=== PATIENT | male | born 2000 | race Hispanic/Latino ===

== ENCOUNTER 2021-03-03 03:12 | Emergency (ER) | payer OTHER, MEDICAID, SELFPAY ==
[2021-03-03 03:32] VITALS: BP 152/103; PULSE 104; RESP 16; TEMP 37.6; O2SAT 100
--- NOTE | 2021-03-03 03:35 | ECG_ITS ---
Measurements Intervals [place] Rate: 86 P: 29 TN: 163 QRS: 76 QRSD: 93 T: 0 QT: 327 QTc: 393 Interpretive Statements SINUS RHYTHM NONSPECIFIC T-WAVE ABNORMALITY- INFERIOR LEADS BORDERLINE ECG Electronically Signed On 03-03-2021 6:49:45 CDT by Gabriel Do D.O.
[2021-03-03 03:51] LABS: Basophils Percent Auto 0.4 % (0.2-1.2); Eosinophils Absolute Auto 0.1 K/mm3 (0-0.3); Eosinophils Percent Auto 1.3 % (0-4.4); Hematocrit 45.9 % (42.0-52.0); Hemoglobin 15.8 g/dL (14.0-18.0); Immature Granulocyte Absolute 0.03 K/mm3 (0.00-0.031); Immature Granulocyte Percent A 0.3 % (0-0.5); Lymphocytes Absolute Auto 3.67 K/mm3 (0.9-3.2); Lymphocytes Percent Auto 36.2 % (18.3-44.2); Mean Corpuscular HGB Conc 34.4 g/dl (32-36); Mean Corpuscular Hemoglobin 30.8 pg (26-34); Mean Corpuscular Volume 89.5 fl (80-100); Mean Platelet Volume 10.4 fl (7.4-10.4); Monocytes Absolute Auto 0.6 K/mm3 (0.1-0.6); Neutrophils Absolute Auto 5.7 K/mm3 (1.3-6.7); Neutrophils Percent Auto 55.8 % (45.5-73.1); Platelet Count Result 227 k/mm3 (150-375); Red Blood Count 5.13 M/mm3 (4.6-6.20); Red Cell Distribution Width 11.8 % (11.5-14.5); White Blood Count 10.2 K/mm3 (4.5-10.0)
[2021-03-03 03:53] LABS: Add Urine Microscopic? NO; Appearance Urine Clear (Clear); Bilirubin Urine Negative (Negative); Blood Urine Negative (Negative); Color Urine Yellow (Yellow); Glucose Urine UA Negative (Negative); Ketones Urine Negative (Negative); Leukocyte Esterase Ur Negative LEU/UL (Negative); Nitrate Urine Negative (Negative); Protein Urine Negative (Negative); Specific Grav Ur 1.017 (1.001-1.035); Urobilinogen Urine Negative mg/dL (<2.0)
--- NOTE | 2021-03-03 03:58 | ED.GENADULT ---
HPI - General Adult General Chief complaint: Psychiatric Symptoms Stated complaint: suicidal ideation Time Seen by Provider: 03/03/21 03:35 History of Present Illness HPI narrative: Patient 21-year-old gentleman who presents the emergency department with chief complaint of depression and suicidal ideation. Patient states that he has been depressed for some time has stopped taking his antidepressants and reports that currently he has been having thoughts intermittently of wanting to hurt himself patient describes it as a recurring dream of which he wakes up and he is decided to cut off his single solitary testicle after he has history of a undescended testis. Patient reports that he has no other plan to harm himself and has not acted on this before in the past. Patient reports no prior hospitalizations reports he has seen a therapist before when he was at school in [place]. Related Data Home Medications Medication Instructions Recorded Confirmed No Home Medications 03/03/21 03/03/21 Allergies Allergy/AdvReac Type Severity Reaction Status Date / Time No Known Allergies Allergy Verified 03/03/21 04:21 Review of Systems Review of Systems: Narrative: A 10 system review of systems was completed on the patient and is negative except for what is stated in the HPI. Nursing and ancillary documentation was reviewed. [facility] Social History Social History Substance use type: does not use Gender identity (if verbalized by the patient): Male Comments Patient has past medical history significant for depression Social history the patient denies illicit drug use Exam Narrative: Exam Narrative: GENERAL: Well-appearing, well-nourished, and in no acute distress. HEAD: Normocephalic, atraumatic. EYES: PERRLA and EOMI. ENT: Nares clear, no rhinorrhea or epistaxis. Mucous membranes moist. NECK: Supple. CHEST: Clear to auscultation. No respiratory distress. HEART: Regular rate and rhythm. No murmur heard. Normal peripheral pulses. ABDOMEN: Soft, nontender, nondistended, normal active bowel sounds. EXTREMITIES: Normal range of motion. No edema. SKIN: Warm, dry, no rash. NEURO: No focal deficits. Alert and oriented x3. PSYCH: Normal mood and affect. Course Course Emergency Course: Patient is medically cleared for psychiatric evaluation Patient was seen by the painting trades worker initially the plan was to admit the patient in further discussion the patient was able to contract for safety the plan will be to discharge the patient with a safety contract follow-up as an outpatient. Vital Signs Vital signs: Vital Signs Temperature 37.6 C H 03/03/21 03:32 Pulse Rate 104 H 03/03/21 03:32 Respiratory Rate 16 03/03/21 03:32 Blood Pressure 152/103 H 03/03/21 03:32 Pulse Oximetry 100 03/03/21 03:32 Temperature 37.6 C H 03/03/21 03:32 Pulse Rate 104 H 03/03/21 03:32 Respiratory Rate 16 03/03/21 03:32 Blood Pressure 152/103 H 03/03/21 03:32 Pulse Oximetry 100 03/03/21 03:32 Medical Decision Making Vital Signs Vital Signs: Vital Signs Temperature 37.6 C H 03/03/21 03:32 Pulse Rate 104 H 03/03/21 03:32 Respiratory Rate 16 03/03/21 03:32 Blood Pressure 152/103 H 03/03/21 03:32 Pulse Oximetry 100 03/03/21 03:32 Temperature 37.6 C H 03/03/21 03:32 Pulse Rate 104 H 03/03/21 03:32 Respiratory Rate 16 03/03/21 03:32 Blood Pressure 152/103 H 03/03/21 03:32 Pulse Oximetry 100 03/03/21 03:32 Lab Data Result diagrams: 03/03/21 03:45 03/03/21 03:44 Labs: Lab Results 03/03/21 03/03/21 03/03/21 Range/Units 03:44 03:44 03:45 WBC (4.5-10.0) K/mm3 RBC (4.6-6.20) M/mm3 Hgb (14.0-18.0) g/dL Hct (42.0-52.0) % MCV (80-100) fl MCH (26-34) pg MCHC (32-36) g/dl RDW (11.5-14.5) % Plt Count (150-375) k/mm3 MPV (7.4-10.4) fl Immature Gran %
[2021-03-03 04:04] LABS: Alanine Aminotransferase 93 U/L (4-50); Albumin Level 4.5 g/dL (3.5-5.1); Alkaline Phosphatase 110 U/L (38-126); Anion Gap 7 mmol/L (8-16); Aspartate Amino Transferase 55 U/L (17-59); Bilirubin,Total 0.4 mg/dL (0.2-1.3); Blood Urea Nitrogen 10 mg/dL (9-20); Calcium 9.7 mg/dL (8.4-10.2); Carbon Dioxide 26 mmol/L (22-30); Chloride 104 mmol/L (98-107); Estimated CRCL calculation 195 ml/min; Estimated Glomerular Filt Rate > 60; Glucose 117 mg/dL (75-110); Potassium 3.9 mmol/L (3.4-5.0); Sodium 137 mmol/L (137-145)
[2021-03-03 04:05] LABS: Acetaminophen < 10 ug/mL (10-30); Ethanol < 10 mg/dL (<10); Salicylate < 1.0 mg/dL (2-20)
[2021-03-03 04:16] LABS: Amphetamine Screen Urine Negative (Negative); Barbiturate Screen Urine Negative (Negative); Benzodiazepines Screen Urine Negative (Negative); Cannabinoid Screen Urine Negative (Negative); Cocaine Screen Urine Negative (Negative); Methadone Screen Urine Negative (Negative); Opiate Screen Urine Negative (Negative); Phencyclidine Screen Urine Negative (Negative)
--- NOTE | 2021-03-03 04:53 | PC.NURSE ---
Per EDP, pt is medically cleared at this time.
[2021-03-03 07:15] VITALS: BP 122/81; PULSE 85; RESP 16; O2SAT 98
== END 2021-03-03 07:15 | disposition home or self-care (01) ==
PROVIDERS: Emergency Provider Emergency Medicine
DX: F32.9 Major depressive disorder, single episode, unspecified (principal); F41.9 Anxiety disorder, unspecified; R94.31 Abnormal electrocardiogram [ECG] [EKG]
CPT/HCPCS: 36415; 80053; 80307; 81003; 84443; 85025; 93005; 99284

== ENCOUNTER 2021-11-08 10:28 | Outpatient (CLI) | payer OTHER, MEDICAID, SELFPAY ==
--- NOTE | ~2021-11-08 | US_ITS ---
EXAMINATION: US scrotum doppler DATE: 11/08/2021 11:16 INDICATION: History of undescended right testicle status post right orchiectomy TECHNIQUE: Testicular sonogram utilizing grayscale and Doppler COMPARISON: None. FINDINGS: The right testis is surgically absent. The left testis measures 4.2 x 2.6 x 2.1 cm and is n ormal in appearance. There is normal vascular flow to the left testicle. The left epididymis is river l with normal vascular flow. There is no varicocele or hydrocele. IMPRESSION: 1. Normal appearing left testicle. Reviewed, dictated and finalized at location F. REMOVAL OPERATOR
[2021-11-08 11:43] LABS: Hemoglobin 15.9 g/dL (14.0-18.0); Mean Corpuscular HGB Conc 34.6 g/dl (32-36); Mean Corpuscular Hemoglobin 30.5 pg (26-34); Mean Corpuscular Volume 88.3 fl (80-100); Mean Platelet Volume 10.6 fl (7.4-10.4); Platelet Count Result 209 k/mm3 (150-375); Red Blood Count 5.21 M/mm3 (4.6-6.20); Red Cell Distribution Width 11.9 % (11.5-14.5); White Blood Count 6.6 K/mm3 (4.5-10.0)
[2021-11-08 11:51] LABS: Alanine Aminotransferase 95 U/L (4-50); Albumin Level 4.7 g/dL (3.5-5.1); Alkaline Phosphatase 106 U/L (38-126); Anion Gap 12 mmol/L (8-16); Aspartate Amino Transferase 58 U/L (17-59); Bilirubin,Total 0.8 mg/dL (0.2-1.3); Blood Urea Nitrogen 6 mg/dL (9-20); Calcium 9.7 mg/dL (8.4-10.2); Carbon Dioxide 27 mmol/L (22-30); Chloride 100 mmol/L (98-107); Estimated Glomerular Filt Rate > 60; Glucose 106 mg/dL (65-110); Potassium 4.4 mmol/L (3.4-5.0); Sodium 139 mmol/L (137-145)
[2021-11-08 12:04] LABS: Add Urine Microscopic? NO; Appearance Urine Clear (Clear); Bilirubin Urine Negative (Negative); Blood Urine Negative (Negative); Color Urine Yellow (Yellow); Glucose Urine UA Negative (Negative); Ketones Urine Negative (Negative); Leukocyte Esterase Ur Negative LEU/UL (NEGATIVE); Nitrate Urine Negative (Negative); Protein Urine Negative (Negative); Specific Grav Ur 1.016 (1.001-1.035); Urobilinogen Urine Negative mg/dL (<2.0)
[2021-11-08 12:35] LABS: Free T4 Free Thyroxine 0.93 ng/mL (0.78-2.19)
== END 2021-11-08 10:29 | disposition home or self-care (01) ==
LOC: ANHIMG 10:33
PROVIDERS: PCP Emergency Medicine; Visit Provider Emergency Medicine
DX: F41.9 Anxiety disorder, unspecified (principal); F32.9 Major depressive disorder, single episode, unspecified; Q53.9 Undescended testicle, unspecified
CPT/HCPCS: 36415; 76870; 80053; 81003; 84439; 84443; 85027; 93976

== ENCOUNTER 2024-02-03 08:06 | Outpatient (RCR) | payer MEDICAID, SELFPAY ==
--- NOTE | 2024-02-03 09:56 | PTOPEVAL1 ---
Assessment and note entered by Andre Allan Evaluation Information Assessment Status Evaluation Diagnosis right knee pain Onset 01/03/24 Subjective Information Pt. reports that he injured the knee about 1 month ago while playing soccer. He states that he hyperextended the knee. He reports that he felt an initial pop during the injury. He describes the on the inside of the knee joint. He states that he notices stiffness and soreness that is on/ off. He reports pain is most notable after going for a walk. He states that he has no trouble with sleep at night. He reports that he plays recreational soccer and enjoys running. He reports that he has not been able to return to these activities due to a feeling of instability in the right knee. 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 Pt. reports that he will be unable to attend any further treatment after today, but will be moving to [place] at the end of the week. He reports that his goal is to be able to improve his knee mobility and return to running. Reported Pain Level Pain Score 2: Self Report Assessment PT Clinical Summary Pt. is a 24 year old male who enters the clinic with right knee pain. He presents with notable edema, decreased R knee ROM, impaired right l.e. strength, impaired gait and functional decline. Continued skilled PT is indicated in order to improve these areas to allow the pt. to be able to return to all IADL's without limitation or pain. Plan of Care Interventions Electrical Stimulation,Hot Pack/Cold Pack, Therapeutic Exercise PT Services Indicated Yes Treatment Frequency and Pt. will be discharged from our care as he states Duration that he is moving out of town at the end of the week. These treatments will address the objective and functional deficits as defined above. The patient will be advanced safely and appropriately in order for the patient to progress towards his/her prior level of function. Additional exercises will be introduced and as well as a comprehensive home exercise program upon discharge, if needed, ?to ensure carryover of functional gains achieved in the clinic. This treatment plan has been reviewed and agreement upon by the patient.
--- NOTE | 2024-02-03 09:57 | OPREHPOC ---
Outpatient Therapy Plan of Care This is a Multidisciplinary Plan of Care that may contain components documented by all disciplines (PT, OT, and ST.) PT Problem 1 PT Problem #1 Knowledge Deficit PT Goal 1 Goal Pt. will be independent with his HEP Progress Met
== END 2024-02-03 10:30 | disposition home or self-care (01) ==
LOC: ANHPT 08:06
PROVIDERS: PCP Emergency Medicine
DX: M25.561 Pain in right knee (principal); S83.203D Other tear of unspecified meniscus, current injury, right knee, subsequent encounter
CPT/HCPCS: 97014; 97110; 97161; G0283